=== PATIENT | female | born 1940 | race Caucasian/White ===

== ENCOUNTER → 2019-10-13 | Outpatient (CLI) | payer OTHER ==
--- NOTE | 2019-10-14 08:58 | CT ---
Procedure: CT LUNG SCREENING Exam Date: 13 Oct 2019. Ordering Provider: Juice Levine Clinical Indication: PERSONAL USE OF TOBACCO current cigarette smoker. 17 pack years. This patient meets eligibility criteria for low-dose CT lung cancer screening. Comparison: None. Technique: Using a multislice scanner, sequential helical axial imaging was obtained in the thorax, 2.5 mm thickness, 2.5 mm separation, from the level of the thoracic inlet through the lung bases without IV contrast. A low dose protocol was utilized for BMI less than 30: BMI: 21. CTDI: 1.74 mGy. 120. kVp. 45 mA. DLP 55 mGy-cm. 2D sagittal and coronal reconstructed images, 6.0 mm thickness, were obtained. This exam was performed according to our departmental dose optimization program which includes use of automated exposure control, adjustment of the mA and/or kV according to patient size and/or use of iterative reconstruction technique. Nodule measurements under 10 mm are given as mean value of 3 axes diameters. FINDINGS: Lungs and large airways: Bilateral peripheral and pleural blebs and bulla consistent with paraseptal emphysema. Worse in the bilateral lung bases along with bibasilar fibrosis and scarring and volume loss. Pleural parenchymal scarring in the inferior lingula. Perifissural thickening bilaterally but less than 10 mm. 3 mm groundglass nodule in the right middle lobe on axial series 2, image 59 and 60. No abnormal nodules and no masses. No acute infiltrates. Pleura and space: Bilateral focal and diffuse thickening with apical pleural thickening and bibasilar thickening at the hemidiaphragms. Mediastinum and nabeel: evaluation limited by low dose technique and lack of IV contrast. Large hiatal hernia with most of the stomach above the diaphragm into the left of midline. Small lymph nodes with largest lymph node 1.8 cm in the azygos region with eccentric fatty hilum. Heart and great vessels: Atherosclerotic calcifications in the coronary arteries and several brachiocephalic vessels aortic arch and descending thoracic aorta. Chest wall, lower neck, axillae: Evaluation also limited by same factors as described above. Negative. Upper abdomen: Evaluation limited by low-dose technique. Aorta and major branch vessel atherosclerotic calcifications. No free air or free fluid. Normal size and density of the adrenal glands. Gallbladder not visualized. Osseous structures: Evaluation limited by low dose MIP technique. Previous compression type vertebral body fracture T10 with vertebral augmentation. Nonaugmented compression type fractures at T12, L1, and T5-T8. Minimal arthrosis glenohumeral joints sternoclavicular joints and the manubriosternal joint. IMPRESSION: 1. Bibasilar scarring and fibrosis with volume loss. 3 mm groundglass nodule right middle lobe. Bilateral paraseptal type emphysematous changes with subpleural and peripheral abnormalities. No abnormal nodules and no mass. No focal infiltrate. 1.8 cm azygous node and other nodes are normal size.. [facility] Best Practice Recommendations: please see below for Lung RADS category and FOLLOW-UP.* *Lung RADS category Category 1 - No nodule or definitely benign nodules (probability of malignancy less than 1%). Follow-up: Continue annual screening with Low Dose Chest CT in 12 months. 2. Lung RADS Modifier S - Clinically Significant or Potentially Clinically Significant Findings (non lung cancer). Multiple thoracic vertebra with compression type vertebral body fractures/deformities, including L1. Previous vertebral body augmentation at T12. Electronically signed by: Jacobo Ford MD 10/14/2019 8:56 AM CDT
== END ==
LOC: YCFC.O 10:33
PROVIDERS: ATTEND Family Medicine
DX: J84.10 Pulmonary fibrosis, unspecified (principal); Z85.038 Personal history of other malignant neoplasm of large intestine; M19.90 Unspecified osteoarthritis, unspecified site; R53.83 Other fatigue; J98.4 Other disorders of lung; J43.9 Emphysema, unspecified; Z87.891 Personal history of nicotine dependence
CPT/HCPCS: 36415; 80053; 80061; 81001; 84443; 85025; G0297

== ENCOUNTER → 2019-12-29 | Outpatient (CLI) | payer OTHER ==
--- NOTE | 2019-12-29 14:39 | RAD ---
EXAM: Chest,2 Views CLINICAL HISTORY: RESPIRATORY CRACKLES COMPARISON STUDY: CT chest from October 13, 2019 TECHNICAL: PA and lateral chest x-ray. FINDINGS: Mild chronic interstitial changes of both lung bases persist. There is no infiltrate/consolidation. There is no sign of interstitial pulmonary edema. There is no pleural effusion. The heart is not enlarged. There are mild vascular calcifications within the aortic arc. Multilevel lower thoracic compression fractures are seen in unchanged. Vertebroplasty cement is present at T11. A large hiatal hernia is noted. IMPRESSION: 1. No acute abnormality. Mild bibasilar interstitial lung disease. 2. Large hiatal hernia. Electronically signed by: Parish Brown MD 12/29/2019 2:37 PM CDT
== END ==
LOC: LAB.O 11:22
PROVIDERS: ATTEND Family Medicine
DX: J84.9 Interstitial pulmonary disease, unspecified (principal); R09.89 Other specified symptoms and signs involving the circulatory and respiratory systems; K44.9 Diaphragmatic hernia without obstruction or gangrene